=== PATIENT | male | born 1960 | race Caucasian/White ===

== ENCOUNTER 2021-12-20 10:46 | Outpatient (CLI) | payer BC, SELFPAY ==
[2021-12-20 18:18] LABS: Chloride* 103 mmol/L (96-114)
[2021-12-20 18:19] LABS: Potassium* 4.4 mmol/L (3.6-5.1); Sodium* 137 mmol/L (135-149)
[2021-12-20 18:21] LABS: Cholesterol* 174 mg/dL (90-199); Creatinine* 0.9 mg/dL (0.5-1.5); Estimated Glomerular Filt Rate 97 ml/min
[2021-12-20 18:22] LABS: Blood Urea Nitrogen* 27 mg/dL (7-30); Calcium* 9.3 mg/dL (8.4-10.6); Carbon Dioxide* 27 mmol/L (20-32); Glucose* 98 mg/dL (60-115); HDL Cholesterol* 61 mg/dL (>=40); LDL Cholesterol Calculated 98 mg/dL (<100); Triglycerides* 75 mg/dL (40-149)
[2021-12-20 18:52] LABS: PSA Screen* 3.81 ng/mL (0.10-4.00)
== END 2021-12-20 10:47 | disposition home or self-care (01) ==
PROVIDERS: PCP Family Medicine; Visit Provider Family Medicine
DX: Z00.00 Encounter for general adult medical examination without abnormal findings (principal); I10 Essential (primary) hypertension; R97.20 Elevated prostate specific antigen [PSA]; Z13.6 Encounter for screening for cardiovascular disorders; Z12.5 Encounter for screening for malignant neoplasm of prostate
CPT/HCPCS: 80048; 80061; 84153

== ENCOUNTER 2024-03-23 10:49 | Outpatient (CLI) | payer BC, SELFPAY | END 2024-03-23 10:50 | disposition home or self-care (01) | PROVIDERS: PCP Family Medicine; Visit Provider Family Medicine | DX: I10 Essential (primary) hypertension (principal); Z12.5 Encounter for screening for malignant neoplasm of prostate | CPT/HCPCS: 80048; G0103 ==

== ENCOUNTER 2024-06-22 09:20 | Outpatient (CLI) | payer BC, SELFPAY | END 2024-06-22 09:21 | disposition home or self-care (01) | LOC: NFLDREF 06-26 01:42 | PROVIDERS: PCP Family Medicine; Referring Provider Family Medicine; Visit Provider Family Medicine | DX: R97.20 Elevated prostate specific antigen [PSA] (principal) | CPT/HCPCS: 84153 ==

== ENCOUNTER 2024-08-31 07:52 | Outpatient (CLI) | payer BC, SELFPAY ==
--- NOTE | 2024-08-31 09:03 | P.ANES_ITS ---
Anesthesia Charges Start Date/Time Anesthesia Start Date: 08/31/24 Anesthesia Start Time: 08:40 Stop Date/Time Anesthesia Stop Date: 08/31/24 Anesthesia Stop Time: 09:03 Coding CPT Codes CPT Codes: CRISTHIAN LWR INTST SCR COLSC - 60939 ([id number]) P2 - PATIENT W/MILD SYST DISEASE, QK - EXECUTIVE ASSISTANT TO GENERAL COUNSEL 2-4 CNCRNT ANES PROC, QX - PHARMACEUTICAL ANALYST SVC W/ MD MED DIRECTION
--- NOTE | 2024-08-31 09:03 | W.ANESCHARGE ---
Anesthesia Charges Start Date/Time Anesthesia Start Date: 08/31/24 Anesthesia Start Time: 08:40 Stop Date/Time Anesthesia Stop Date: 08/31/24 Anesthesia Stop Time: 09:03 Coding CPT Codes CPT Codes: CRISTHIAN LWR INTST SCR COLSC - [id number] ([id number]) P2 - PATIENT W/MILD SYST DISEASE, QK - RECORD LABEL INTERN 2-4 CNCRNT ANES PROC, QX - TOOTH INSPECTOR SVC W/ MD MED DIRECTION
--- NOTE | 2024-08-31 09:10 | P.ANES_ITS ---
Anesthesia Charges Start Date/Time Anesthesia Start Date: 08/31/24 Anesthesia Start Time: 08:40 Stop Date/Time Anesthesia Stop Date: 08/31/24 Anesthesia Stop Time: 09:03 Coding CPT Codes CPT Codes: CRISTHIAN LWR INTST SCR COLSC - [id number] ([id number]) QK - RFID STRATEGIST 2-4 CNCRNT CRISTHIAN PROC, QX - MAIL DISTRIBUTOR SVC W/ MD MED DIRECTION, P2 - PATIENT W/MILD SYST DISEASE
--- NOTE | 2024-08-31 09:10 | W.ANESCHARGE ---
Anesthesia Charges Start Date/Time Anesthesia Start Date: 08/31/24 Anesthesia Start Time: 08:40 Stop Date/Time Anesthesia Stop Date: 08/31/24 Anesthesia Stop Time: 09:03 Coding CPT Codes CPT Codes: CRISTHIAN LWR INTST SCR COLSC - [id number] ([id number]) QK - SEXER 2-4 CNCRNT CRISTHIAN PROC, QX - LPN INSTRUCTOR SVC W/ MD MED DIRECTION, P2 - PATIENT W/MILD SYST DISEASE
== END 2024-08-31 07:53 | disposition home or self-care (01) ==
LOC: OP CLINIC 07:54
PROVIDERS: PCP Family Medicine; Visit Provider Internal Medicine
DX: Z12.11 Encounter for screening for malignant neoplasm of colon (principal); Z80.0 Family history of malignant neoplasm of digestive organs; K64.8 Other hemorrhoids
CPT/HCPCS: 00812; 45378; J2704